=== PATIENT | female | born 1990 | race Caucasian/White ===

== ENCOUNTER → 2023-10-16 10:32 | Outpatient (REF) | payer OTHER, SELFPAY | LOC: RAD 10:32 | PROVIDERS: ATTENDING PHYSICIAN Doula; FAMILY PHYSICIAN Family Medicine | DX: Z34.81 Encounter for supervision of other normal pregnancy, first trimester (principal) | CPT/HCPCS: 76801 ==

== ENCOUNTER → 2023-12-23 08:07 | Outpatient (REF) | payer OTHER, SELFPAY | LOC: PNTC 08:07 | PROVIDERS: ATTENDING PHYSICIAN Doula | DX: O09.529 Supervision of elderly multigravida, unspecified trimester (principal) | CPT/HCPCS: 76811 ==

== ENCOUNTER 2025-02-10 20:47 | Emergency (ER) | payer OTHER, SELFPAY ==
[2025-02-10 20:52] VITALS: BP 125/71
--- NOTE | 2025-02-10 22:54 | ED.GENMED ---
History of Present Illness
General
Chief Complaint: Skin Surface Trauma
Source: patient
Time Seen by Provider: 02/10/25 22:18
History of Present Illness
History of Present Illness:
34-year-old female who accidentally cut her finger on a sharp knife in the kitchen. Bleeding noted at distal index finger left side. No other injury. Tetanus is up-to-date. No numbness or tingling.
Past History
Past History
ED Past Medical History: None
ED Past Surgical History: Tonsilectomy
Social History
Tobacco: Non-smoker
Alcohol: None
Drug: None
Personal:
Living: with family
Phy Exam
Physical Exam
Physical Exam:
GENERAL: Alert , in no apparent distress
NECK: Supple
ENT: mmm.
CARDIAC: Regular rate and rhythm .
LUNGS: Clear breath sounds bilaterally, no acute respiratory distress, no wheezes/rales/rhonchi
NEUROLOGICAL: Alert and oriented, no focal neuro deficits
SKIN: Warm and dry, 1.2 cm lac to level of soft tissue at L 5th finger, volar aspect, dip area. No tendon/joint involvement. FROM< strength/sens intact.
MUSCULOSKELETAL: No edema, well perfused.
PSYCH: Normal and appropriate interaction.
Course
Vital Signs
Initial and Last Documented VS:
Initial Vital Signs
Temp Pulse Resp BP Pulse Ox
98.4 F 71 16 125/71 97
02/10/25 20:52 02/10/25 20:52 02/10/25 20:52 02/10/25 20:52 02/10/25 20:52
Last Documented Vital Signs
Temp Pulse Resp BP Pulse Ox
98.4 F 71 16 125/71 97
02/10/25 20:52 02/10/25 20:52 02/10/25 20:52 02/10/25 20:52 02/10/25 20:52
Procedures
Laceration Closure
Finger:
Status of Wound: clean
Description of Wound Edges: sharp
Preparation: cleaned with saline
Anesthesia: Digital-Regional
Revision/Debridement: routine- no revision
Wound exploration: explored to base- no FB
Type of Closure: single layer closure
Skin Closure Material: 4-0 nylon
Number of sutures: 3
*Pulse Oximetry
SaO2: 97
Oxygen Mode of Delivery: Room air
Update Note
Update Note:
Patient presents to the Emergency Department with finger laceration
Number and Complexity of Problems Addressed at the Encounter
� Chronic conditions affecting care:
� Acute Exacerbation and/or Progression of Chronic Illness:
� Differential Diagnosis includes: But not limited to soft tissue injury, tendon injury, joint injury, retained foreign body, etc. etc.
Amount and/or Complexity of Data to be Reviewed and Analyzed
� I performed an independent evaluation of and my interpretation is:
EKG:
CT:
Xrays:
Laboratory Studies:
Other:
� Review of other/old records reveals:
� Clinical information was obtained by an independent historian:
� Prescriptions/Medications Considered but not given:
� Further testing considered but not performed:
Risk of Complications and/or Morbidity or Mortality of Patient Management
� Social determinants of health affecting care:
� Discussion with other providers (PCP, Hospitalists, Consultants, etc):
� Escalation of care including admission/observation vs risk of discharge considered: Area closely inspected through full range of motion, no abnormalities noted with the exception of laceration to level of soft tissue.
Thoroughly irrigated before repair. Discussed with patient portance of follow-up and reasons return to the ER.
ED Attending Note
-
Portions of this chart may have been created with voice recognition software.� Occasional wrong word or��sound alike� substitutions may have occurred due to the inherent limitations of voice recognition software.
Discharge Plan
Departure
Patient Disposition: Home (Routine Discharge)
Date of Disposition: 02/10/25
Time of Disposition: 22:55
Patient with high blood pressure during this ER visit?: Yes
Condition: Good
Discharge Problem:
Laceration
Instructions: Laceration Repair With Stitches (DC), BLOOD PRESSURE
Prescriptions:
No Action
Unobtainable
0
Referrals:
Jamin Carrillo DO [Family Provider, [facility]] - Follow up in 10 days
Activity Restrictions/Additional Instructions:
YOU HAD 3 SUTURES PLACED. PLEASE KEEP THE AREA CLEAN AND DRY, INSPECTED FOR SIGNS OF INFECTION. IF YOU DEVELOP PAIN, PERSISTENT BLEEDING, DRAINAGE, FEVER, SWELLING, REDNESS, OR OTHER WORRISOME SIGNS, PLEASE RETURN TO THE ER IMMEDIATELY. YOUR
SUTURES SHOULD BE REMOVED WITHIN THE NEXT 7 TO 10 DAYS.
Interventions
Interventions:
*Risk Screen - Suicide Last Done: 02/10/25 20:52
*General Assessment Last Done: 02/10/25 22:37
*Neglect/Abuse Screening Last Done: 02/10/25 20:52
*ED- Fall Risk Assessment Last Done: 02/10/25 22:37
*ED COVID-19 Vaccine History Last Done: 02/10/25 22:37
ED-Skin Assessment Last Done: 02/10/25 22:46
Discharge Date and Time
Print Language: MICRONESIAN
[2025-02-10 23:04] VITALS: BP 103/67
== END 2025-02-10 23:05 | disposition home or self-care (01) ==
LOC: EMR 20:47
PROVIDERS: EMERGENCY PHYSICIAN Emergency Medicine; FAMILY PHYSICIAN Family Medicine
DX: S61.211A Laceration without foreign body of left index finger without damage to nail, initial encounter (principal); W26.0XXA Contact with knife, initial encounter; R03.0 Elevated blood-pressure reading, without diagnosis of hypertension
CPT/HCPCS: 99282; 12001